=== PATIENT | female | born 1940 | race Caucasian/White ===

== ENCOUNTER → 2018-04-05 | Emergency (ER) | payer MEDICARE, OTHER ==
--- NOTE | 2018-04-05 16:54 | EDM.PDOC ---
ED HPI GENERAL MEDICAL PROBLEM - General Chief Complaint: Back Pain or Injury Stated Complaint: BACK PAIN Time Seen by Provider: 04/05/18 10:55 Source of Information: Reports: Patient, Family History Limitations: Reports: No Limitations - History of Present Illness INITIAL COMMENTS - FREE TEXT/NARRATIVE: This is a 77yo F here for left lower back pain and tenderness. She states she has had this issue for about 9 days and it has not improved much. Patient continues to be active but having issues due to the pain. Patient denies any injury and feels that she may have pulled something. Patient did try a few muscle relaxers from a friend and states she did feel better. Onset: Sudden Duration: Day(s): (9) Location: Reports: Back Quality: Reports: Ache Severity: Moderate Improves with: Reports: None Worsens with: Reports: Movement Associated Symptoms: Reports: No Other Symptoms Right Lower Back Pain Score (Numeric/FACES): 8 - Related Data Home Meds: Home Meds Aspirin 81 mg PO DAILY 04/05/18 [History] Benazepril [Lotensin] 40 mg PO DAILY 04/05/18 [History] Hydrochlorothiazide 12.5 mg PO DAILY 04/05/18 [History] Metoprolol Succinate [Toprol XL 50mg] 50 mg PO DAILY 04/05/18 [History] Pioglitazone [Actos] 30 mg PO DAILY 04/05/18 [History] Potassium Chloride 10 meq PO DAILY 04/05/18 [History] amLODIPine Besylate [Amlodipine Besylate] 10 mg PO DAILY 04/05/18 [History] Past Medical History - Past Health History Medical/Surgical History: Denies Medical/Surgical History Cardiovascular History: Reports: Hypertension 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 ED EXAM,LOWER BACK PAIN/INJURY - Physical Exam Exam: See Below Exam Limited By: No Limitations General Appearance: Alert, WD/WN, Mild Distress Eye Exam: Bilateral Eye: EOMI, PERRL Ears: Normal External Exam Nose: Normal Inspection Throat/Mouth: Normal Inspection Respiratory/Chest: No Respiratory Distress Cardiovascular: Normal Peripheral Pulses Back Exam: Muscle Spasm Extremities: Normal Inspection Course - Vital Signs Last Recorded V/S: Last Vital Signs Temp 36.6 C 04/05/18 10:57 Pulse 63 04/05/18 10:57 Resp 20 04/05/18 10:57 BP 160/75 H 04/05/18 10:57 Pulse Ox 98 04/05/18 10:57 Departure - Departure Time of Disposition: 12:15 Disposition: Home, Self-Care 01 Condition: Good Clinical Impression: Muscle spasm of back - Discharge Information Instructions: Cyclobenzaprine tablets, Ibuprofen tablets and capsules Referrals: PCP,None [Primary Care Provider] - Forms: ED Department Discharge Care Plan Goals: Take ibuprofen 600 mg 4 x day or 800mg 3 x day. Take muscle relaxant as directed. Can alternate hot and cold to area 3 to 4 x day, 20 minutes of an hour. Do not leave on too long as to cause cold or heat injury. No lifting or housework requiring bending using the injured area. Return to clinic as necessary ([id number]). - Problem List & Annotations (1) Muscle spasm of back SNOMED Code(s): 441328984 Code(s): M62.830 - MUSCLE SPASM OF BACK Status: Acute Priority: High Current Visit: Yes - Problem List Review Problem List Initiated/Reviewed/Updated: Yes - Assessment/Plan Plan: Patient counseled on back muscle strain and f/u. Discussed supportive care, including ice, hot packs, and rest. Discussed medication use and management and f/u if symptoms persist or worsen. Counseled on no lifting, bending, pushing or pulling for 2 weeks.
== END | disposition home or self-care (01) ==
LOC: LB.ED 10:22
DX: M62.830 Muscle spasm of back (principal); E11.9 Type 2 diabetes mellitus without complications; I10 Essential (primary) hypertension; Z79.82 Long term (current) use of aspirin; Z79.899 Other long term (current) drug therapy
CPT/HCPCS: 99283

== ENCOUNTER 2018-05-03 10:59 | Emergency (ER) | payer MEDICARE, OTHER ==
[2018-05-03] MEDS ORDERED: Ondansetron 4 MG/2 ML SDV IVPUSH ONE ×2 (11:35→16:30)
[2018-05-03] MEDS ORDERED: Sodium Chloride 0.9% 1,000 ML IV ONE ×2 (11:36→13:33)
[2018-05-03] MEDS ORDERED: Ondansetron 4 MG/2 ML SDV ONE ×2 (11:53→16:26)
[2018-05-03] MEDS ORDERED: Lisinopril 20 MG Tab ONE (13:15)
[2018-05-03] MEDS ORDERED: Lisinopril 20 MG Tab PO STA (13:17)
[2018-05-03] MEDS ORDERED: Sodium Chloride 0.9% 1,000 ML IV SCH (13:45)
[2018-05-03] MEDS ORDERED: Labetalol 100 MG/20 ML MDV IVPUSH ONE (14:36)
[2018-05-03] MEDS ORDERED: Ondansetron 4 MG Tab.DIS ONE (15:00)
[2018-05-03] MEDS ORDERED: Levofloxacin/Dextrose 5%-Water 150 ML IV ONE (17:16)
[2018-05-03] MEDS ORDERED: Levofloxacin/Dextrose 5%-Water 750 MG in Premix Bag 1 BAG IV ONE (17:18)
--- NOTE | 2018-05-03 23:24 | ER ---
HPI: A 77-year-old lady here with complaints of nausea and vomiting for the last couple of days. She feels tired. Her mouth is dry. She is not having any pain. The patient's feels that she could be going into withdrawal. She was taking some pain medication for about a month. She quit taking them about 5 days ago. The patient is not feeling shaky. She is not having any shortness of breath or wheezing symptoms. She states that she just feels nauseated a lot and has been vomiting. OBJECTIVE: GENERAL APPEARANCE: The patient is awake and alert. No obvious distress. VITAL SIGNS: Reviewed. Blood pressure initially 140/85, pulse of 94, O2 sats are 93% on room air. Physical exam, ears; TMs are normal. Nares are patent. Oral mucous membranes are dry. Tonsils not enlarged or injected. Pharynx not inflamed. NECK: Supple. LUNGS: Clear with reduced air exchange throughout the lung painter. CARDIAC: Heart sounds distinct without murmurs. ABDOMEN: Soft, nontender. Bowel sounds are present. SKIN: Warm and dry. INITIAL TREATMENT: An IV was started. She was given Zofran 4 mg IV. LABORATORY DATA: Labs today include a CBC showing an elevated white count of 18,000, neutrophils are also elevated at 91.3. Viral markers are low. Comprehensive metabolic panel shows a sodium level of 151, potassium 4.2, BUN of 49, creatinine 1.88, GFR of 26. Liver enzymes are okay. UA shows mild amount of proteinuria without a UTI. At this point, the patient had been given 1 L of normal saline. She states that nausea was better, but still present. We did repeat the Zofran x1. Further evaluation at this point was needed. I therefore obtained an EKG showing a normal sinus rhythm. Troponin level is negative. CT of the chest and abdomen reveals mild obesity in the lingula, questionable for pneumonia. The patient also has a 4.4 mm calcific density in the right ureter, thought to be a stone and mild inflammation of the pancreas consistent with mild pancreatitis. After monitoring the patient here for most of the afternoon several hours, she did not have any problems with pain at any time. The patient's blood pressure did go higher. She had a reading of 183/86. She was given lisinopril 20 mg p.o.; about an hour later, her blood pressure wound was not improving. I then ordered labetalol 20 mg IV and this brought her blood pressure down nicely as well as her pulse. DIAGNOSIS: Pneumonia. TREATMENT PLAN: Levaquin 750 mg was given here per IV. The patient will be discharged to home with her . We will start her on Augmentin tomorrow. I also will give her Zofran tablets to take home to use as needed. She is to rest, take her medications as directed. Followup should be within a day or two if her symptoms are not improving or if her condition should get worse. If things are improving, a recheck should be next week in the clinic. The patient has no further questions and agrees with the treatment plan. CRS/MODL /[id number]
--- NOTE | 2018-05-04 10:11 | CT ---
DATE OF SERVICE: 05/03/18 CLINICAL DATA: chest pain with nausea and vomiting. UNENHANCED CHEST CT: Multislice acquisition through the chest without IV contrast was performed. No priors. There are mild atelectatic changes involving the lingular segment of the left upper lobe and adjacent left lower lobe with minimal consolidation. Pneumonia should be considered. There are linear densities in both lung bases consistent with linear atelectasis or fibrosis. There is a very small left pleural effusion. There is a small hiatal hernia. The heart size is normal. No significant pericardial effusion. There are coronary artery calcifications. There is calcification in the region of the aortic valve. There is a 2 cm hypodense nodule within the left lobe of the thyroid. Thyroid ultrasound is recommended. No pneumothorax. No hilar or mediastinal adenopathy. No other significant findings. UNENHANCED ABDOMEN AND PELVIC CT: Multislice acquisition through the abdomen and pelvis without IV or oral contrast was performed. No priors. There is a small hiatal hernia. The unenhanced liver appears normal. No focal hepatic lesions. The gallbladder appears normal. The spleen appears normal. The pancreas is atrophic. There is a 2.5 cm oval-shaped fluid density lesion adjacent to the tail of the pancreas. This may represent a pseudocyst. The possibility of a cystic pancreatic neoplasm should be considered. The pancreas is otherwise unremarkable. The right and left adrenals appear normal. There is atrophy of both kidneys. There are multiple small nonobstructing renal calculi on the right. No nephrocalcinosis or nephrolithiasis on the left. There is a 5 mm calcific density located in or adjacent to the right ureter at the L5 level. I am uncertain whether it is within the right ureter or adjacent to it. It may represent vascular calcification. The kidneys and collecting systems are otherwise unremarkable. The bladder is partially fluid-filled and appears normal. There are multiple calcified lesions within the uterus consistent with calcified uterine leiomyoma. The appendix is not dilated. No evidence of appendicitis. There is diverticulosis of the descending and sigmoid colon. No evidence of diverticulitis. There is an umbilical hernia containing fat. No free air. No free fluid. No dilated loops of bowel. No adenopathy. No aortic aneurysm. IMPRESSION: 1) A 5 mm calcification adjacent to or within the right ureter at the L5 level. This may be vascular. No associated hydronephrosis or hydroureter. 2) A 2.1 cm fluid density lesion adjacent to the tail of the pancreas. This may represent a pancreatic pseudocyst. The possibility of a cystic pancreatic neoplasm should be considered. 3) Other findings as discussed above. [id number] [facility]
== END 2018-05-03 19:08 | disposition home or self-care (01) ==
LOC: LB.ED 10:59
DX: J18.9 Pneumonia, unspecified organism (principal)
CPT/HCPCS: 36415; 71250; 74176; 80053; 81001; 82150; 83690; 84484; 85025; 93005; 96361; 96365; 96375; 96376; 99284-25; A9270-GY; J1956; J2405; J3490; J7030

== ENCOUNTER 2020-07-01 09:37 | Emergency (ER) | payer MEDICARE, OTHER ==
--- NOTE | 2020-07-01 10:49 | EDM.PDOC ---
ED HPI GENERAL MEDICAL PROBLEM - General Chief Complaint: Lower Extremity Injury/Pain Stated Complaint: FALL 06/24/20 R KNEE INJURY Time Seen by Provider: 07/01/20 10:35 Source of Information: Reports: Patient History Limitations: Reports: No Limitations - History of Present Illness INITIAL COMMENTS - FREE TEXT/NARRATIVE: patient fell 1 week ago injuring her right knee. Has been able to ambulate, but with a walker. Pain is only when bearing weight, denies pain sitting or at rest. Denies any could, cough, fever, CP, SOB. Quality: Reports: Ache Severity: Mild Improves with: Reports: Rest Worsens with: Reports: Movement Associated Symptoms: Reports: No Other Symptoms - Related Data Allergies Allergy/AdvReac Type Severity Reaction Status Date / Time No Known Allergies Allergy Verified 05/13/18 19:05 Home Meds: Home Meds Aspirin 81 mg PO DAILY 04/05/18 [History] Benazepril [Lotensin] 40 mg PO DAILY 04/05/18 [History] Pioglitazone [Actos] 30 mg PO DAILY 04/05/18 [History] Potassium Chloride 10 meq PO DAILY 04/05/18 [History] amLODIPine Besylate [Amlodipine Besylate] 10 mg PO DAILY 04/05/18 [History] hydroCHLOROthiazide [Hydrochlorothiazide] 12.5 mg PO DAILY 04/05/18 [History] Ibuprofen 800 mg PO Q8HR 05/03/18 [History] Meclizine [Antivert] 25 mg PO Q6H PRN #30 tab.chew 05/08/18 [Rx] Metoprolol Succinate [Toprol XL 50mg] 50 mg PO DAILY tab.er 05/08/18 [Rx] Glucosam/Chond/Collagen/Hyalur [Glucosamine Chondroitin] 1 each PO DAILY 05/13/18 [History] Omeprazole 40 mg PO ACBREAKFAST 05/13/18 [History] Past Medical History - Past Health History Medical/Surgical History: Denies Medical/Surgical History HEENT History: Reports: Other (See Below) Other HEENT History: wears glasses Cardiovascular History: Reports: Hypertension Respiratory History: Reports: None Gastrointestinal History: Reports: Chronic Constipation, Chronic Diarrhea Genitourinary History: Reports: None 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: Musculoskeletal History: Reports: Back Pain, Chronic Psychiatric History: Reports: None Endocrine/Metabolic History: Reports: Diabetes, Type II - Infectious Disease History Infectious Disease History: Reports: Chicken Pox - Past Surgical History Musculoskeletal Surgical History: Reports: None Social & Family History - Family History Family Medical History: Noncontributory - Caffeine Use Caffeine Use: Reports: Soda Review of Systems - Review of Systems Review Of Systems: See Below Constitutional: Reports: No Symptoms Eyes: Reports: No Symptoms Ears: Reports: No Symptoms Nose: Reports: No Symptoms Mouth/Throat: Reports: No Symptoms Respiratory: Reports: No Symptoms Cardiovascular: Reports: No Symptoms GI/Abdominal: Reports: No Symptoms Genitourinary: Reports: No Symptoms Musculoskeletal: Reports: Leg Pain Skin: Reports: No Symptoms Neurological: Reports: No Symptoms Psychiatric: Reports: No Symptoms ED EXAM, GENERAL - Physical Exam Exam: See Below Exam Limited By: No Limitations General Appearance: Alert, No Apparent Distress Head: Atraumatic Neck: Full Range of Motion Respiratory/Chest: No Respiratory Distress, No Accessory Muscle Use Cardiovascular: No Edema, No JVD Rectal (Female) Exam: Deferred Back Exam: Full Range of Motion Extremities: Normal Inspection, Normal Range of Motion, No Pedal Edema (right knee noted slight swelling, CMS +, pedal pulses present, no pain with any ROM. ), Normal Capillary Refill Neurological: Alert, Oriented, Normal Reflexes, No Motor/Sensory Deficits Psychiatric: Normal Affect, Normal Mood Skin Exam: Warm, Dry, Intact Course - Orders/Labs/Meds Orders: Active Orders 24 hr Category Date Time Status Knee 3V Rt [CR] Stat Exams 07/01/20 10:43 Taken Departure - Departure Time of Disposition: 11:50 Disposition: Home, Self-Care 01 Condition: Good Clinical Impression: Sprain of knee - Discharge Information *PRESCRIPTION DRUG MONITORING PROGRAM REVIEWED*: Not Applicable *COPY OF PRESCRIPTION DRUG MONITORING REPORT IN PATIENT KRISTINA: Not Applicable Instructions: Knee Sprain, Adult, [id number], Elastic Bandage and RICE Therapy Referrals: PCP,None [Primary Care Provider] - Forms: ED Department Discharge Additional Instructions: They will call you to schedule the MRI. Follow up with your Primary care doctor as needed. Use the suman wrap while walking and bearing weight. Ice when sitting. Return to ED for any increased or new concerning symptoms. - Problem List Review Problem List Initiated/Reviewed/Updated: Yes - My Orders Last 24 Hours: My Active Orders 07/01/20 10:43 Knee 3V Rt [CR] Stat - Assessment/Plan Last 24 Hours: My Active Orders 07/01/20 10:43 Knee 3V Rt [CR] Stat Plan: patient verbalized understanding of DC instructions, all questions were answered prior to DC.
--- NOTE | 2020-07-01 12:10 | CR ---
DATE OF SERVICE: 07/01/20 CLINICAL DATA: pain after fall 1 week ago RIGHT KNEE: There is a faint lucency with slight cortical impaction noted on the lateral view adjacent to the tibial tuberosity. A CT or MRI may be helpful to further evaluate this. No other significant findings. No lytic or blastic bone lesions. There are vascular calcifications in the soft tissues. [id number] [facility]
== END 2020-07-01 12:00 | disposition home or self-care (01) ==
LOC: LB.ED 09:37
DX: S83.91XA Sprain of unspecified site of right knee, initial encounter (principal); E11.9 Type 2 diabetes mellitus without complications; I10 Essential (primary) hypertension; Z79.82 Long term (current) use of aspirin; Z79.899 Other long term (current) drug therapy; W19.XXXA Unspecified fall, initial encounter
CPT/HCPCS: 73562-RT; 99282; 99283